=== PATIENT | male | born 1955 | race Caucasian/White ===

== ENCOUNTER 2021-11-16 22:18 | Emergency (ER) | payer MEDICAID ==
[~2021-11-16] VITALS: Ht 188 cm; Wt 81.8 kg
[2021-11-16] MEDS ORDERED: ketorolac trometh inj. 60 MG/2 ML VIAL IM ONE (23:25)
[2021-11-16] MEDS ORDERED: acetaminophen 325mg tablet PO ONE (23:25)
[2021-11-17] MEDS ORDERED: HYDR-3965 PO (00:04)
[2021-11-17] MEDS ORDERED: ACET-1025 PO (00:04)
[2021-11-17] MEDS ORDERED: IBUP-1984 PO (00:04)
[2021-11-17 00:34] VITALS: BP 129/84
== END 2021-11-17 00:40 | disposition home or self-care (01) ==
LOC: ER 22:19
DX: M25.562 Pain in left knee (principal); M25.572 Pain in left ankle and joints of left foot
CPT/HCPCS: 73564; 73590; 73630; 96372; 99284; J1885; 99283

== ENCOUNTER 2024-08-01 14:55 | Emergency (ER) | payer OTHER, MEDICAID ==
[~2024-08-01] VITALS: Ht 188 cm; Wt 73.7 kg
[2024-08-01 15:05] VITALS: BP 186/104; PULSE 112; RESP 16; TEMP 98.4; O2SAT 96
[2024-08-01 15:54] LABS: BILIRUBIN,URINE NEGATIVE (Neg); CLARITY,URINE CLEAR (Clear); COLOR,URINE YELLOW (Yellow); GLUCOSE, URINE NEGATIVE (Neg); KETONES,URINE NEGATIVE (Neg); LEUKOCYTE ESTERASE ,URINE NEGATIVE (Neg); NITRITES, URINE NEGATIVE (Neg); OCCULT BLOOD,URINE NEGATIVE (Neg); PH,URINE 6.5 (4.8-8.0); PROTEIN,URINE NEGATIVE (Neg); UROBILINOGEN,URINE 0.2 E.U/dL (0.2-1.0)
[2024-08-01 15:58] LABS: BASOPHILS # (AUTO) 0.1 X10'3 (0-0.2); BASOPHILS % (AUTO) 0.7 % (0-1); EOSINOPHILS # (AUTO) 0.2 X10'3 (0-0.9); EOSINOPHILS % (AUTO) 2.7 % (0-6); HEMATOCRIT 47.9 % (42.0-52.0); HEMOGLOBIN 16.2 g/dl (14.0-17.9); LYMPHOCYTES # (AUTO) 2.4 X10'3 (1.1-4.8); LYMPHOCYTES % (AUTO) 27.9 % (21-51); MEAN CORPUSCULAR HEMOGLOBIN 31.6 PG (27.0-31.0); MEAN CORPUSCULAR HGB CONC 33.9 g/dL (33.0-36.5); MEAN CORPUSCULAR VOLUME 93.4 FL (78-98); MEAN PLATELET VOLUME 8.6 FL (7.4-10.4); MONOCYTES # (AUTO) 0.8 X10'3 (0-0.9); MONOCYTES % (AUTO) 9.5 % (2-12); NEUTROPHILS % (AUTO) 59.2 % (42-75); PLATELET COUNT 226 X10'3 (140-440); RED BLOOD COUNT 5.13 X10'6 (4.70-6.10); RED CELL DISTRIBUTION WIDTH 14.1 % (11.5-14.5); WHITE BLOOD COUNT 8.5 X10'3 (4.5-11.0)
[2024-08-01 16:01] LABS: UA COLLECTION TYPE CLN CATCH MIDSTREAM
[2024-08-01 16:05] LABS: URINE AMPHETAMINE SCREEN NEGATIVE (Neg); URINE BARBITUATE SCREEN NEGATIVE (Neg); URINE BENZODIAZEPINES SCREEN NEGATIVE (Neg); URINE CANNABINOID SCREEN POSITIVE (Neg); URINE COCAINE SCREEN NEGATIVE (Neg); URINE METHADONE SCREEN NEGATIVE (Neg); URINE OPIATE SCREEN NEGATIVE (Neg); URINE PHENCYCLIDINE SCREEN NEGATIVE (Neg)
[2024-08-01 16:21] LABS: ALBUMIN 3.9 G/DL (3.4-5.0); ANION GAP 4 (8-16); BLOOD UREA NITROGEN 19 MG/DL (7-18); BUN/CREATININE RATIO 30.6 (10.0-20.0); CALCIUM 9.4 MG/DL (8.5-10.1); CHLORIDE 102 MMOL/L (99-107); CREATININE 0.62 MG/DL (0.60-1.10); GLUCOSE 114 MG/DL (70-104); POTASSIUM 4.3 MMOL/L (3.5-5.1); SODIUM 139 MMOL/L (135-145); THYROID STIMULATING HORMONE 1.94 ulU/ml (0.34-4.50); TOTAL CARBON DIOXIDE 32.7 MMOL/L (24-32); eCRCL 122 ML/MIN; eGFR > 90 ML/MIN
[2024-08-01 16:31] LABS: ETHANOL < 10 MG/DL (<10)
[2024-08-01] MEDS: hydrOXYzine 25 MG tablet PO STA (16:44)
[2024-08-01] MEDS ORDERED: HYDR-3686 PO (17:48)
== END 2024-08-01 18:30 | disposition home or self-care (01) ==
LOC: ER 14:56
DX: R45.851 Suicidal ideations (principal); F12.90 Cannabis use, unspecified, uncomplicated; Z98.890 Other specified postprocedural states; Z72.89 Other problems related to lifestyle; Z20.822 Contact with and (suspected) exposure to COVID-19
CPT/HCPCS: 36415; 80048; 80305; 81003; 84443; 85025; 87811; 99284; G0480; Q0177; 80320

== ENCOUNTER 2024-08-03 08:35 | Emergency (ER) | payer OTHER, MEDICAID ==
[~2024-08-03] VITALS: Ht 188 cm; Wt 69.0 kg
[~2024-08-03 08:35] MED LIST: HYDR-3686 PO
[2024-08-03 08:43] VITALS: BP 148/96; PULSE 90; RESP 18; TEMP 97.8; O2SAT 99
[2024-08-03] MEDS ORDERED: DIPH25CA83 PO (11:35)
[2024-08-03] MEDS ORDERED: TRAZ-251 PO (11:35)
== END 2024-08-03 13:00 | disposition home or self-care (01) ==
LOC: ER 08:36
DX: Z00.00 Encounter for general adult medical examination without abnormal findings (principal); G47.9 Sleep disorder, unspecified; F12.90 Cannabis use, unspecified, uncomplicated; F15.10 Other stimulant abuse, uncomplicated; Z98.890 Other specified postprocedural states
CPT/HCPCS: 99283

== ENCOUNTER 2024-08-05 08:49 | Outpatient (CLI) | payer OTHER, MEDICAID ==
[~2024-08-05 08:49] MED LIST changes: +DIPH25CA83 PO; +TRAZ-251 PO
== END 2024-08-05 23:59 | disposition home or self-care (01) ==
LOC: RAD 08:49
PROVIDERS: ATTEND Family Medicine
DX: R76.11 Nonspecific reaction to tuberculin skin test without active tuberculosis (principal)
CPT/HCPCS: 71045

== ENCOUNTER 2024-09-02 08:30 | Emergency (ER) | payer OTHER, MEDICAID ==
[~2024-09-02] VITALS: Ht 188 cm; Wt 79.5 kg
[2024-09-02 10:50] VITALS: BP 124/70; PULSE 84; RESP 16; TEMP 98.8; O2SAT 98
== END 2024-09-02 10:51 | disposition home or self-care (01) ==
LOC: ER 08:31
DX: G47.9 Sleep disorder, unspecified (principal); Z76.0 Encounter for issue of repeat prescription; F12.90 Cannabis use, unspecified, uncomplicated
CPT/HCPCS: 99281